=== PATIENT | male | born 1955 | race Caucasian/White ===

== ENCOUNTER 2016-12-11 07:00 | Day surgery (SDC) | payer BC ==
[~2016-12-11] VITALS: Ht 180.3 cm; Wt 90.7 kg
[~2016-12-11 07:00] MED LIST: AMBIEN10 MG PO; METOPROLOL TART25 MG PO; MULTIPLE VITAMI1 TA1 PO; ULTRAM50 MG PO
[2016-12-11 07:43] LABS: HEMATOCRIT 39.6 % (42.0-54.0); HEMOGLOBIN 13.2 g/dL (13.5-17.5); MCHC 33.3 g/dL (31.0-37.0); MEAN PLATELET VOLUME 10.3 fL (7.4-10.4); RBC 4.26 10x6/uL (4.20-6.10); RDW 12.9 % (11.5-14.5)
[2016-12-11 07:45] VITALS: Ht 180.3 cm; Wt 90.7 kg
[2016-12-11] MEDS ORDERED: DILAUDID2 MG PO (11:35)
--- NOTE | 2016-12-11 12:18 | NUR ---
VANCOMYCIN 1 GRAM IN 250CC OF NORMAL SALINE INFUSING ON ADMIT
--- NOTE | 2016-12-16 10:48 | OP ---
PATIENT NAME: WILFRED REED MEDICAL RECORD: [id number] :51 LOCATION:D.OPS ADMISSION DATE: SURGEON: MILVIA BOWERS MD DATE OF OPERATION: 12/11/2016 PREOPERATIVE DIAGNOSIS: Large rotator cuff tear. POSTOPERATIVE DIAGNOSIS: Large rotator cuff tear. PROCEDURES: 1. Diagnostic arthroscopy of the left shoulder. 2. Open rotator cuff repair. SURGEON: Milvia Bowers MD. ANESTHESIA: General. INTRAOPERATIVE COMPLICATIONS: None. SUMMARY OF PATHOLOGIC FINDINGS: This patient did have a very large rotator cuff tear. It mobilized nicely and was amenable to repair, obviating the need for an SCR procedure. OPERATIVE SUMMARY IN DETAIL: After obtaining the appropriate preoperative orthopedic surgery consent as well as anesthetic consultation, evaluation and clearance, the patient was brought to the operating room and placed on the operating table in supine position. After adequate general laryngeal mask was administered, the patient was placed in the beach chair position. All pressure points were well padded. He was held firmly to the operating room table using the vacuum pack suction system. Left upper extremity and shoulder were prepped and draped in routine sterile fashion. The arm was held in Trimano arm holding device. Arthroscopy was established in the glenohumeral joint from posterior portal. Anterior portal was established in the anterior safe Interval. Diagnostic arthroscopy showed the patient had very large rotator cuff tear. Intraarticularly, he was in overall good condition, however. At this point, an anterolateral incision was made across the front of the acromion taken down approximately 3 cm from the lateral edge of the acromion. The rotator cuff tear was identified. Serial and sequential mobilization was done using #2 Ethibonds. Adhesions were freed both on the superficial aspect of the supraspinatus and infraspinatus, as well as subscapularis, as well as in the anterior aspect just above the glenoid. When the adhesions were all taken down, this was freely mobilized to the lateral cuff edge. The lateral cuff edge was then burred back to the cancellous bleeding bone. A double row fixation was utilized along with a central ripstop using 4 SwiveLocks for the double row and then a single SwiveLock centrally to help with the central fixation. This resulted in anatomic quaker of the rotator cuff back on the footprint. At this point, the deltoid was then reapproximated back to the acromion in a [id number] imbricated measure and the superficial and deep deltoid were likewise closed all with #2 Ethibond. This was followed by #1 Vicryl, 2-0 Vicryl and skin humble. Anterior and posterior portals were likewise stapled. Sterile dressings were applied. The patient was awakened and taken to recovery room in stable condition. All final needle and sponge counts were correct. TRANSINT:[id number] Voice Confirmation ID: [id number] DOCUMENT ID: [id number] OPERATIVE REPORT [id number] WILFRED REED MD, MILVIA LYNN at 1048 CC: [id number] DICTATION DATE: 12/11/16 170 NANOTECHNOLOGY ENGINEERING TECHNICIAN: 12/12/16 0255 [facility] 12/11/16 [id number] [place] [address]
== END 2016-12-11 13:45 | disposition home or self-care (01) ==
LOC: D.OPS 07:00 → D.PAN 09:00 → D.OPS 09:15 → D.PAN 09:15 → D.OPS 09:30 → D.PAN 09:30 → D.OPS 12:00
PROVIDERS: Anesthesiology
DX: M75.102 Unspecified rotator cuff tear or rupture of left shoulder, not specified as traumatic (principal)